=== PATIENT | male | born 1955 | race Two or more races ===

== ENCOUNTER 2022-02-08 07:26 | Day surgery (SDC) | payer MEDICAID ==
[2022-02-07 12:21] LABS: Basophils # (auto) 0.1 10 ^3/uL (0-0.2); Basophils % (auto) 0.8 % (0.0-2.0); Eosinophils # (auto) 0.5 10 ^3/uL (0-0.8); Eosinophils % (auto) 7.2 % (0.0-7.0); Hematocrit 43.4 % (41.0-53.0); Hemoglobin 14.7 g/dL (13.5-17.5); Lymphocytes # (auto) 2.4 10 ^3/uL (0.4-5.4); Lymphocytes % (auto) 33.1 % (10.0-50.0); Mean Corpuscular Hemoglobin 32.1 pg (28.0-32.0); Mean Corpuscular Hgb Conc. 33.8 g/dL (32.0-36.0); Mean Corpuscular Volume 95.1 fL (80.0-100.0); Monocytes # (auto) 0.6 10 ^3/uL (0-1.3); Monocytes % (auto) 8.7 % (0.0-12.0); Neutrophils # (auto) 3.7 10 ^3/uL (1.6-8.6); Neutrophils % (auto) 50.2 % (37.0-80.0); Nucleated Red Blood Cells % 0.1 %; Red Blood Cells 4.56 10^6/uL (4.5-5.90); White Blood Cell 7.3 10^3/uL (4.4-10.8)
[2022-02-07 12:35] LABS: INR 1.03 (0.9-1.15); Partial Thromboplastin Time 28.2 sec (24.6-33.4)
[2022-02-07 12:43] LABS: Urine Bacteria NONE SEEN /hpf (None Seen); Urine Blood Negative /uL (Negative); Urine Specific Gravity 1.019 (1.001-1.035); Urine WBC 2 /hpf (0 - 3)
[2022-02-07 12:45] LABS: Albumin 4.3 g/dL (3.4-5.0); Calcium 9.3 mg/dL (8.5-10.1); Potassium 4.2 mmol/L (3.5-5.1)
[2022-02-07 12:49] LABS: BUN/Creatinine Ratio 9.8; Bilirubin, Total 0.5 mg/dL (0.2-1.0); Total Protein 7.4 g/dL (6.4-8.2)
[~2022-02-08] VITALS: Ht 177.8 cm; Wt 88.5 kg
[~2022-02-08 07:26] MED LIST: GEMF-19 PO
[2022-02-08] MEDS ORDERED: ceFAZolin 1GM/50ML 100 ML IV ONE (07:46)
[2022-02-08] MEDS ORDERED: DexAMETHasone SOD PHOS 10MG/1ML VIAL INJ ONE (07:50)
[2022-02-08] MEDS ORDERED: MEPERIDINE HCL (50 MG/ML) 1 ML VIAL ONE (07:50)
[2022-02-08] MEDS ORDERED: MIDAZOLAM HCL 2MG/2ML 2ml VIAL (1mg/ml) ONE (07:50)
[2022-02-08] MEDS ORDERED: fentaNYL CITRATE 100 MCG/2 ML VL ONE (07:50)
[2022-02-08] MEDS ORDERED: SODIUM CHLORIDE LOCK 10 ML ONE (07:50)
[2022-02-08] MEDS ORDERED: PROPOFOL 10 MG/ML 20 ML IV ONE (07:50)
[2022-02-08] MEDS ORDERED: ONDANSETRON HCL 4 MG/2 ML VIAL ONE (07:50)
[2022-02-08] MEDS ORDERED: HYDROmorphone HCL 2 MG/ML VL/or syr IV PRN ×2 (09:00)
[2022-02-08] MEDS ORDERED: MORPHINE SULFATE 4 MG/ML SYR/VIAL IV PRN (09:00)
[2022-02-08] MEDS ORDERED: METOCLOPRAMIDE HCL 5MG/ml INJ 2ml VIAL IV PRN (09:00)
[2022-02-08] MEDS ORDERED: BUPIVACAINE W/ EPINEPH 0.25% INJ 50ML MDV ONE (09:39)
[2022-02-08] MEDS ORDERED: KETOROLAC TROMETH 60MG/2ML VIAL ONE (10:10)
[2022-02-08] MEDS ORDERED: ACE3T PO (10:16)
[2022-02-08 12:15] VITALS: BP 129/80
== END 2022-02-08 12:00 | disposition home or self-care (01) ==
LOC: SUR 07:26
PROVIDERS: ATTEND Surgery
DX: K40.90 Unilateral inguinal hernia, without obstruction or gangrene, not specified as recurrent (principal); I10 Essential (primary) hypertension; E78.5 Hyperlipidemia, unspecified; Z98.890 Other specified postprocedural states; Z79.899 Other long term (current) drug therapy; Z88.1 Allergy status to other antibiotic agents; Z20.822 Contact with and (suspected) exposure to COVID-19
CPT/HCPCS: 36415; 49505; 80053; 81001; 85025; 85610; 85730; 86850; 86900; 86901; 88305; J0690; J1100; J1885; J2175; J2250; J2405; J2704; J3010; U0003

== ENCOUNTER → 2023-10-29 | Outpatient (CLI) | payer OTHER ==
[~2023-10-29] MED LIST changes: +ACE3T PO; -GEMF-19 PO; +GEMF-66 PO
== END | disposition home or self-care (01) ==
LOC: Rad HDHVI 14:58
PROVIDERS: ATTEND Internal Medicine Cardiovascular Disease
DX: I08.3 Combined rheumatic disorders of mitral, aortic and tricuspid valves (principal); I11.9 Hypertensive heart disease without heart failure
CPT/HCPCS: 93306

== ENCOUNTER → 2023-10-30 | Outpatient (CLI) | payer OTHER ==
[~2023-10-30] VITALS: Ht 180.3 cm; Wt 86.6 kg
== END | disposition home or self-care (01) ==
LOC: Rad HDHVI 12:50
PROVIDERS: ATTEND Internal Medicine Cardiovascular Disease
DX: R00.0 Tachycardia, unspecified (principal); R53.83 Other fatigue
CPT/HCPCS: 78452; 93017; 96374; A9500

== ENCOUNTER → 2023-12-17 | Outpatient (CLI) | payer OTHER ==
[~2023-12-17] MED LIST changes: +AMLO1TAB22 PO; +ATOR40TA52 PO; +FENO145T27 PO; +RIVA20TA PO
[2023-12-17 10:12] VITALS: BP 137/88; PULSE 80; RESP 16; O2SAT 96
[2023-12-17 10:20] VITALS: BP 159/88; PULSE 81; RESP 16; O2SAT 96
== END | disposition home or self-care (01) ==
LOC: Rad HDHVI 09:47
PROVIDERS: ATTEND Internal Medicine Cardiovascular Disease
DX: Z01.818 Encounter for other preprocedural examination (principal); I48.91 Unspecified atrial fibrillation; R94.31 Abnormal electrocardiogram [ECG] [EKG]; I45.2 Bifascicular block
CPT/HCPCS: 71046; 93005; G0463

== ENCOUNTER 2023-12-20 07:00 | Day surgery (SDC) | payer OTHER, MEDICAID ==
[2023-12-17 12:10] LABS: Basophils # (auto) 0 10 ^3/uL (0-0.2); Basophils % (auto) 0.7 % (0.0-2.0); Eosinophils # (auto) 0.2 10 ^3/uL (0-0.8); Eosinophils % (auto) 2.6 % (0.0-7.0); Hematocrit 44.4 % (41.0-53.0); Lymphocytes # (auto) 2.3 10 ^3/uL (0.4-5.4); Lymphocytes % (auto) 33.5 % (10.0-50.0); Mean Corpuscular Hemoglobin 33.1 pg (28.0-32.0); Mean Corpuscular Hgb Conc. 33.8 g/dL (32.0-36.0); Monocytes # (auto) 0.6 10 ^3/uL (0-1.3); Monocytes % (auto) 8.2 % (0.0-12.0); Neutrophils # (auto) 3.8 10 ^3/uL (1.6-8.6); Nucleated Red Blood Cells % 0.1 %; Platelet Count (auto) 191 10^3/uL (140-450); Red Blood Cells 4.53 10^6/uL (4.5-5.90); Red Cell Distribution Width 14.2 % (11.8-14.3); White Blood Cell 6.9 10^3/uL (4.4-10.8)
[2023-12-17 12:49] LABS: INR 1.08 (0.9-1.15); Prothrombin Time 11.4 sec (9.3-11.8)
[2023-12-17 13:00] LABS: Chloride 109 mmol/L (98-107); Potassium 4.7 mmol/L (3.5-5.1); Sodium 142 mmol/L (136-145)
[2023-12-17 13:01] LABS: Anion Gap 6 (5-15); Carbon Dioxide 27 mmol/L (20-30)
[2023-12-17 13:02] LABS: Partial Thromboplastin Time 27.8 SEC (24.5-34.5)
[2023-12-17 13:07] LABS: BUN/Creatinine Ratio 5.1 (10.0-20.0); Blood Urea Nitrogen 7 mg/dL (9-23); Glucose 90 mg/dL (74-106)
[~2023-12-20] VITALS: Ht 177.8 cm; Wt 88.9 kg
[2023-12-20] VITALS (10 sets, daily range): BP systolic 115–135; BP diastolic 70–89; PULSE 69–86; RESP 18–20; TEMP 97.8; O2SAT 91–96
[~2023-12-20 07:00] MED LIST changes: -ACE3T PO; -GEMF-66 PO
[2023-12-20] MEDS ORDERED: fentaNYL CITRATE 100 MCG/2 ML VL ONE (08:42)
[2023-12-20] MEDS ORDERED: VANCOMYCIN HCL 1000 MG VL ONE (08:42)
[2023-12-20] MEDS ORDERED: MIDAZOLAM HCL 2MG/2ML 2ml VIAL (1mg/ml) ONE (08:43)
[2023-12-20] MEDS ORDERED: VANCOMYCIN 1GM/200ML 200 ML IV ONE (08:43)
[2023-12-20] MEDS ORDERED: LIDOCAINE 2%HCL (LOCAL ANESTH.) INJ 20ML MDV ONE ×2 (08:43)
[2023-12-20] MEDS ORDERED: IODIXANOL 320MG/ML 100ML BTL IV ONE (08:46)
== END 2023-12-20 13:00 | disposition home or self-care (01) ==
LOC: CATH 07:00
PROVIDERS: ATTEND Internal Medicine Cardiovascular Disease
DX: I49.5 Sick sinus syndrome (principal); I10 Essential (primary) hypertension; I48.0 Paroxysmal atrial fibrillation; E78.5 Hyperlipidemia, unspecified; R00.1 Bradycardia, unspecified; J44.9 Chronic obstructive pulmonary disease, unspecified; Z98.890 Other specified postprocedural states; Z87.891 Personal history of nicotine dependence
CPT/HCPCS: 33208; 36415; 71045; 80048; 85025; 85610; 85730; 93005; C1785; C1898; J2250; J3010; J3370; Q9967; 99152; 99153

== ENCOUNTER → 2024-04-15 | Outpatient (CLI) | payer OTHER, MEDICAID | END | disposition home or self-care (01) | LOC: Rad HDHVI 09:56 | PROVIDERS: ATTEND Internal Medicine Cardiovascular Disease | DX: I10 Essential (primary) hypertension (principal) | CPT/HCPCS: 93306 ==

== ENCOUNTER → 2024-08-18 | Outpatient (CLI) | payer OTHER, MEDICAID ==
[~2024-08-18] MED LIST changes: +OMEGCAP2 OR
[2024-08-18 13:05] VITALS: BP 133/82; PULSE 73; RESP 18; O2SAT 93
[2024-08-18 13:27] VITALS: BP 133/83; PULSE 69; RESP 18; O2SAT 93
--- NOTE | 2024-08-18 13:36 | DVH ---
2-view chest CLINICAL INDICATION: Preop FINDINGS: Heart size slightly enlarged. Pacer leads in the right atrium and right ventricle. Aorta t ortuous. No infiltrates or effusions. IMPRESSION: 1. No acute cardiopulmonary pathology
== END | disposition home or self-care (01) ==
LOC: Rad HDHVI 12:56
PROVIDERS: ATTEND Internal Medicine Cardiovascular Disease
DX: Z01.818 Encounter for other preprocedural examination (principal); R94.31 Abnormal electrocardiogram [ECG] [EKG]; Q25.46 Tortuous aortic arch; I50.1 Left ventricular failure, unspecified; I48.91 Unspecified atrial fibrillation
CPT/HCPCS: 71046; 93005; G0463

== ENCOUNTER 2024-08-21 07:16 | Day surgery (SDC) | payer OTHER, MEDICAID ==
[2024-08-18 15:13] LABS: Basophils # (auto) 0.1 10 ^3/uL (0-0.2); Basophils % (auto) 0.8 % (0.0-2.0); Eosinophils # (auto) 0.3 10 ^3/uL (0-0.8); Eosinophils % (auto) 4.7 % (0.0-7.0); Hematocrit 43.2 % (41.0-53.0); Hemoglobin 15.1 g/dL (13.5-17.5); Lymphocytes # (auto) 2.4 10 ^3/uL (0.4-5.4); Lymphocytes % (auto) 33.5 % (10.0-50.0); Mean Corpuscular Hemoglobin 32.7 pg (28.0-32.0); Mean Corpuscular Volume 93.6 fL (80.0-100.0); Monocytes # (auto) 0.6 10 ^3/uL (0-1.3); Neutrophils # (auto) 3.8 10 ^3/uL (1.6-8.6); Nucleated Red Blood Cells % 0.1 %; Platelet Count (auto) 179 10^3/uL (140-450); Red Blood Cells 4.62 10^6/uL (4.5-5.90); Red Cell Distribution Width 14.7 % (11.8-14.3); White Blood Cell 7.2 10^3/uL (4.4-10.8)
[2024-08-18 15:22] LABS: Potassium 4.3 mmol/L (3.5-5.1); Sodium 140 mmol/L (136-145)
[2024-08-18 15:23] LABS: Anion Gap 6 (5-15); Carbon Dioxide 24 mmol/L (20-31)
[2024-08-18 15:24] LABS: Calcium 10.1 mg/dL (8.7-10.4)
[2024-08-18 15:28] LABS: Glucose 89 mg/dL (74-106)
[2024-08-18 15:29] LABS: BUN/Creatinine Ratio 9.6 (10.0-20.0); Blood Urea Nitrogen 10 mg/dL (9-23)
[2024-08-18 15:30] LABS: INR 1.12 (0.9-1.15); Partial Thromboplastin Time 32.2 SEC (24.5-34.5); Prothrombin Time 11.7 sec (9.3-11.8)
[2024-08-18 15:40] LABS: Chloride 110 mmol/L (98-107)
[~2024-08-21] VITALS: Ht 177.8 cm; Wt 85.3 kg
[~2024-08-21 07:16] MED LIST changes: -ATOR40TA52 PO; -FENO145T27 PO
[2024-08-21] MEDS ORDERED: IOHEXOL 350 MG/ML 100ML IJ ONE (10:23)
[2024-08-21] MEDS ORDERED: HEPARIN IN NS 1000Units/500mL 1,500 ML ONE (10:24)
[2024-08-21] MEDS ORDERED: fentaNYL CITRATE 100 MCG/2 ML VL ONE (10:31)
[2024-08-21] MEDS ORDERED: MIDAZOLAM HCL 2MG/2ML 2ml VIAL (1mg/ml) ONE (10:31)
[2024-08-21] MEDS ORDERED: ANGIOMAX 250 MG VIAL IV ONE (10:31)
[2024-08-21] MEDS ORDERED: SODIUM CHL 0.9% 50 ML ONE (10:32)
[2024-08-21] MEDS ORDERED: LIDOCAINE 2%HCL (LOCAL ANESTH.) INJ 20ML MDV ONE (10:32)
[2024-08-21] MEDS ORDERED: PROMETHAZINE W/CODEINE 5 ML ORAL SYRUP PO ONE (11:00)
--- NOTE | 2024-08-21 11:33 | DVHDS ---
DATE OF DISCHARGE: 08/21/2024 DISCHARGE DIAGNOSES: * Dilated cardiomyopathy. * Depressed left ventricular ejection fraction, ejection fraction around 40%. * Normal coronary anatomy. HOSPITAL COURSE: At this time, the patient needs to have aggressive risk modification and medical management for his CHF or diminished left ventricular ejection fraction but no catheter-based surgical intervention is warranted. He may require an update from a dual-chamber permanent pacemaker to a BiV or right bundle pacing. We will continue to follow the patient. Stable at the time of discharge. DISPOSITION: Home. ACTIVITY: As instructed. DIET: 2 gram sodium diet. Brent Schuster MD SA/YAMILE TID: [id number] RECEIPT: [id number]
--- NOTE | 2024-08-21 11:41 | DVHOP ---
DATE OF SURGERY: 08/21/2024 PROCEDURES PERFORMED: * Selective left and right coronary angiography. * Ventriculogram. * Right iliac angiography. * Conscious sedation. DESCRIPTION OF PROCEDURE: The patient was prepped and draped in a sterile condition. A 1% Xylocaine was used to anesthetize the right groin. Using a Cook needle, right femoral artery was engaged with Seldinger technique, a 6-[place] sheath in the right femoral artery. Using 6-[place] JL4 catheter, a 6-[place] JR4 catheter, selective left and right coronary angiography was performed. Using 6-[place] pigtail catheter, ventriculogram was done. Right femoral arteriotomy site was closed using the Angio-Seal device. RESULTS: * Left main without any flow restrictive lesion. * Left anterior descending artery without any flow restrictive lesion. * Circumflex without any flow restrictive lesion. * Right coronary artery without any flow restrictive lesion. * Left ventricular function shows global hypokinesis and estimated EF of 40% with an LVEDP of 17 to 18 mmHg with no gradient across the aortic valve. * Left ventricular systolic pressure was around 138. Thus, patient with dilated cardiomyopathy most likely secondary to right ventricular pacing. At this time, medical management should be implemented and try to minimize RV pacing. If indeed patient's EF weakens, will consider a BiV pacing. Brent Schuster MD SA/JESICA TID: [id number] RECEIPT: [id number]
== END 2024-08-21 13:30 | disposition home or self-care (01) ==
LOC: CATH 07:16
PROVIDERS: ATTEND Internal Medicine Cardiovascular Disease
DX: I25.10 Atherosclerotic heart disease of native coronary artery without angina pectoris (principal); I48.0 Paroxysmal atrial fibrillation; I42.0 Dilated cardiomyopathy; Z79.899 Other long term (current) drug therapy; Z87.891 Personal history of nicotine dependence; Z88.8 Allergy status to other drugs, medicaments and biological substances
CPT/HCPCS: 36415; 80048; 85025; 85610; 85730; 93458; C1760; C1769; C1894; J1644; J2250; J3010; J7040; Q9967; 99152